=== PATIENT | female | born 1970 | race Caucasian/White ===

== ENCOUNTER 2021-10-26 09:41 | Day surgery (SDC) | payer BC ==
[~2021-10-26] VITALS: Ht 162.6 cm; Wt 78.9 kg
[~2021-10-26 09:41] MED LIST: BALANCED SALT IRRIG SOLN COMB1 500ML OP NR; CYCLOPENTOLATE HCL 1% OPHTH DROPS 2ML RIGHTEYE ONE; PHENYLEPHRINE HCL 10% OPHTH DROPS 5ML RIGHTEYE ONE; TROPICAMIDE 1% OPHTH DROPS 15ML RIGHTEYE ONE
[2021-10-26 10:09] LABS: UCG SCREEN NEGATIVE
[2021-10-26 10:54] LABS: BASOPHILS % 0.7 % (0.0-2.0); EOSINOPHILS % 0.7 % (0.0-5.0); HEMATOCRIT. 41.3 % (36.0-48.0); HEMOGLOBIN. 14.1 g/dL (12.0-16.0); LYMPHOCYTES % 15.6 % (20.0-50.0); MEAN CORPUSCULAR HEMOGLOBIN 29.4 pg (28.0-32.0); MEAN CORPUSCULAR VOLUME 86.4 fL (81.0-99.0); MEAN PLATELET VOLUME 7.5 fl (7.4-10.4); MONOCYTES % 3.1 % (2.0-8.0); NEUTROPHILS % 79.9 % (40.0-76.0); PLATELET 216 x1000/uL (130-400); RED BLOOD CELL COUNT 4.78 mill/uL (4.2-5.4); RED CELL DISTRIBUTION WIDTH 13.8 % (11.6-14.6)
[2021-10-26 10:59] LABS: CHLORIDE 103 mEq/L (98-107)
[2021-10-26] MEDS ORDERED: HYALURONATE SODIUM 10 MG/ML 0.55ML SYRINGE IO ONE (11:12)
[2021-10-26] MEDS ORDERED: FENTANYL CITRATE/PF 50MCG/ML 2ML VIAL ONE (11:18)
[2021-10-26] MEDS ORDERED: MIDAZOLAM HCL 2 MG/2 ML VIAL ONE ×3 (11:18→11:52)
[2021-10-26] MEDS ORDERED: TRYPAN BLUE 0.5 ML DISP.SYRIN IO ONE (11:50)
[2021-10-26] MEDS ORDERED: PROPOFOL 200MG/20ML VIAL IV ONE (11:58)
[2021-10-26] MEDS ORDERED: IBUP1TAB11 PO (12:27)
[2021-10-26] MEDS ORDERED: METO-385 PO (12:27)
[2021-10-26] MEDS ORDERED: LOSA1TAB34 PO (12:27)
[2021-10-26] MEDS ORDERED: TROPICAMIDE 1% OPHTH DROPS 15ML ONE (13:28)
[2021-10-26] MEDS ORDERED: ACETYLCHOLINE CHLORIDE INTRAOCULAR SOLUTION 1:100 ELECTROLYTE DILUENT IO ONE (13:28)
[2021-10-26] MEDS ORDERED: LIDOCAINE HCL/PF 2% 20 MG/ML 10ML VIAL ONE (13:28)
[2021-10-26] MEDS ORDERED: CYCLOPENTOLATE HCL 1% OPHTH DROPS 2ML ONE (13:28)
[2021-10-26] MEDS ORDERED: NEO/POLYMYX B SULF/DEXAMETH OPHTH OINT 3.5GM ONE (13:28)
[2021-10-26] MEDS ORDERED: CIPROFLOXACIN 0.3% OPHTH SOLN 2.5ML ONE (13:28)
[2021-10-26] MEDS ORDERED: PHENYLEPHRINE HCL 10% OPHTH DROPS 5ML ONE (13:28)
[2021-10-26] MEDS ORDERED: PREDNISOLONE ACETATE 1% OPHTH DROPS 5ML ONE (13:28)
[2021-10-26] MEDS ORDERED: TETRACAINE 0.5% OPHTH DROPS 4ML ONE (13:28)
[2021-10-26] MEDS ORDERED: BALANCED SALT IRRIG SOLN 15ML ONE (13:28)
== END 2021-10-26 14:00 | disposition home or self-care (01) ==
LOC: OR 09:41
PROVIDERS: ATTEND Ophthalmology
DX: H25.89 Other age-related cataract (principal); I10 Essential (primary) hypertension; N39.0 Urinary tract infection, site not specified; F11.20 Opioid dependence, uncomplicated; F43.0 Acute stress reaction; F17.210 Nicotine dependence, cigarettes, uncomplicated; Z79.899 Other long term (current) drug therapy; Z98.890 Other specified postprocedural states; Z82.49 Family history of ischemic heart disease and other diseases of the circulatory system; Z20.822 Contact with and (suspected) exposure to COVID-19
CPT/HCPCS: 36415; 66984; 80048; 81025; 85025; 87426; J2250; J2704; J3490; Q9957; V2632; J3010

== ENCOUNTER → 2021-11-09 | Day surgery (SDC) | payer BC ==
[~2021-11-09] VITALS: Ht 152.4 cm; Wt 81.6 kg
[~2021-11-09] MED LIST changes: +ACETAMINOPHEN 325MG TABLET PO NR; +ACETYLCHOLINE CHLORIDE INTRAOCULAR SOLUTION 1:100 ELECTROLYTE DILUENT IO ONE; +BALANCED SALT IRRIG SOLN 15ML ONE; -BALANCED SALT IRRIG SOLN COMB1 500ML OP NR; +BALANCED SALT IRRIG SOLN COMB1 500ML OP ONE; +CIPROFLOXACIN 0.3% OPHTH SOLN 2.5ML ONE; -CYCLOPENTOLATE HCL 1% OPHTH DROPS 2ML RIGHTEYE ONE; +CYCLOPENTOLATE HCL 1% OPHTH DROPS 2ML RIGHTEYE SCH; +HYALURONATE SODIUM 10 MG/ML 0.55ML SYRINGE IO ONE; +IBUP1TAB11 PO; +KETOROLAC 30MG/ML VIAL ONE; +LACTATED RINGERS 1,000 ML IV SCH; +LIDOCAINE HCL 1% 10 MG/ML 10ML VIAL ONE; +LIDOCAINE HCL/PF 2% 20 MG/ML 10ML VIAL ONE; +LOSA1TAB34 PO; +METO-385 PO; -PHENYLEPHRINE HCL 10% OPHTH DROPS 5ML RIGHTEYE ONE; +PHENYLEPHRINE HCL 10% OPHTH DROPS 5ML RIGHTEYE SCH; +PREDNISOLONE ACETATE 1% OPHTH DROPS 5ML ONE; +PROPOFOL 10MG/ML 100ML 100 ML IV ONE; +TETRACAINE 0.5% OPHTH DROPS 4ML ONE; -TROPICAMIDE 1% OPHTH DROPS 15ML RIGHTEYE ONE; +TROPICAMIDE 1% OPHTH DROPS 15ML RIGHTEYE SCH; +TRYPAN BLUE 0.5 ML DISP.SYRIN IO ONE
[2021-11-09 07:17] LABS: UCG SCREEN NEGATIVE
== END | disposition home or self-care (01) ==
LOC: OR 06:06
PROVIDERS: ATTEND Ophthalmology
DX: H52.31 Anisometropia (principal); Z79.899 Other long term (current) drug therapy; Z98.890 Other specified postprocedural states; Z20.822 Contact with and (suspected) exposure to COVID-19
CPT/HCPCS: 66986; 81025; 87426; J1885; J2704; J3490; V2632; Q9957

== ENCOUNTER 2022-05-12 03:45 | Inpatient (IN) | payer BC ==
[~2022-05-12] VITALS: Ht 152.4 cm; Wt 74.8 kg
[~2022-05-12 03:45] MED LIST changes: -ACETAMINOPHEN 325MG TABLET PO NR; -ACETYLCHOLINE CHLORIDE INTRAOCULAR SOLUTION 1:100 ELECTROLYTE DILUENT IO ONE; -BALANCED SALT IRRIG SOLN 15ML ONE; -BALANCED SALT IRRIG SOLN COMB1 500ML OP ONE; -CIPROFLOXACIN 0.3% OPHTH SOLN 2.5ML ONE; -CYCLOPENTOLATE HCL 1% OPHTH DROPS 2ML RIGHTEYE SCH; -HYALURONATE SODIUM 10 MG/ML 0.55ML SYRINGE IO ONE; -KETOROLAC 30MG/ML VIAL ONE; -LACTATED RINGERS 1,000 ML IV SCH; -LIDOCAINE HCL 1% 10 MG/ML 10ML VIAL ONE; -LIDOCAINE HCL/PF 2% 20 MG/ML 10ML VIAL ONE; -PHENYLEPHRINE HCL 10% OPHTH DROPS 5ML RIGHTEYE SCH; -PREDNISOLONE ACETATE 1% OPHTH DROPS 5ML ONE; -PROPOFOL 10MG/ML 100ML 100 ML IV ONE; -TETRACAINE 0.5% OPHTH DROPS 4ML ONE; -TROPICAMIDE 1% OPHTH DROPS 15ML RIGHTEYE SCH; -TRYPAN BLUE 0.5 ML DISP.SYRIN IO ONE
[2022-05-12] MEDS ORDERED: ONDANSETRON HCL 4MG/2ML INJ IV STA (04:04)
[2022-05-12] MEDS ORDERED: SODIUM CHLORIDE 0.9% 1,000 ML IV ONE (04:15)
[2022-05-12 04:28] LABS: BASOPHILS % 0.5 % (0.0-2.0); EOSINOPHILS % 0.6 % (0.0-5.0); HEMATOCRIT. 39.7 % (36.0-48.0); HEMOGLOBIN. 13.6 g/dL (12.0-16.0); LYMPHOCYTES % 11.4 % (20.0-50.0); MEAN CORPUSCULAR HEMOGLOBIN 29.7 pg (28.0-32.0); MEAN CORPUSCULAR VOLUME 86.4 fL (81.0-99.0); MEAN PLATELET VOLUME 7.4 fl (7.4-10.4); MONOCYTES % 3.9 % (2.0-8.0); NEUTROPHILS % 83.6 % (40.0-76.0); PLATELET 195 x1000/uL (130-400); RED BLOOD CELL COUNT 4.59 mill/uL (4.2-5.4); RED CELL DISTRIBUTION WIDTH 13.7 % (11.6-14.6)
[2022-05-12 04:35] LABS: CHLORIDE 102 mEq/L (98-107)
[2022-05-12] MEDS ORDERED: IBUPROFEN 600MG TABLET PO SCH (05:30)
[2022-05-12] MEDS ORDERED: IOHEXOL-300 100 ML BOTTLE ONE (06:23)
[2022-05-12] MEDS ORDERED: PIPERACILLIN/TAZ 3.375G PREMIX 50 ML IV ONE (07:45)
[2022-05-12] MEDS ORDERED: ONDANSETRON HCL 4MG/2ML INJ IV PRN ×2 (09:45→11:45)
[2022-05-12] MEDS ORDERED: MAGNESIUM/ALUMINUM HYDROXIDE/SIMETHICONE 30ML UDC PO PRN (09:45)
[2022-05-12] MEDS ORDERED: HYDROCODONE/ACETAMINOPHEN 5/325MG TABLET PO PRN (09:45)
[2022-05-12] MEDS ORDERED: ACETAMINOPHEN 325MG TABLET PO PRN (09:45)
[2022-05-12] MEDS ORDERED: GUAIFENESIN 200MG/10ML SUGAR FREE UDC PO PRN (09:45)
[2022-05-12] MEDS ORDERED: NALOXONE HCL 0.4MG/ML VIAL IV PRN (10:00)
[2022-05-12] MEDS ORDERED: BUPIVACAINE HCL 0.5% (5MG/ML) 50ML ONE (10:35)
[2022-05-12] MEDS ORDERED: SKIN ADHESIVE 0.7 GM EA TOP ONE (10:36)
[2022-05-12] MEDS ORDERED: PROPOFOL 200MG/20ML VIAL IV ONE (11:03)
[2022-05-12] MEDS ORDERED: FENTANYL CITRATE/PF 50MCG/ML 2ML VIAL ONE (11:03)
[2022-05-12] MEDS ORDERED: MIDAZOLAM HCL 2 MG/2 ML VIAL ONE (11:04)
[2022-05-12] MEDS ORDERED: BUPIVACAINE HCL/PF 0.5% (5MG/ML) 30ML ONE (11:04)
[2022-05-12] MEDS ORDERED: NEOSTIGMINE METHYLSULFATE 1MG/ML 10 ML VIAL ONE (11:33)
[2022-05-12] MEDS ORDERED: ROCURONIUM BROMIDE 10MG/ML VIAL 5ML IV ONE (11:33)
[2022-05-12] MEDS ORDERED: GLYCOPYRROLATE 0.2 MG/ML 2ML VIAL ONE ×2 (11:36)
[2022-05-12] MEDS ORDERED: MEPERIDINE HCL/PF 25MG/ML CPJ IV PRN (11:45)
[2022-05-12] MEDS ORDERED: HYDROMORPHONE HCL/PF 2MG/ML CPJ IV PRN (11:45)
[2022-05-12] MEDS ORDERED: LABETALOL 5MG/ML SYR 20 MG/4 ML SYRINGE IV PRN (11:45)
[2022-05-12] MEDS: CLONIDINE 0.1MG TABLET PO PRN ×2 (13:25→20:58)
[2022-05-12 15:58] VITALS: BP 175/94
[2022-05-12 16:00] VITALS: BP 175/94
[2022-05-12 20:00] VITALS: BP 165/102
[2022-05-12] MEDS ORDERED: IBUPROFEN 800MG TABLET PO PRN (20:45)
[2022-05-12] MEDS: IBUPROFEN 400MG TABLET PO PRN (20:57)
[2022-05-12] MEDS: ACETAMINOPHEN 325MG TABLET PO PRN (20:57)
[2022-05-13] VITALS: BP 179/87
[2022-05-13] MEDS: ACETAMINOPHEN 325MG TABLET PO PRN ×3 (02:59→20:03)
[2022-05-13] MEDS: IBUPROFEN 400MG TABLET PO PRN ×3 (02:59→20:03)
[2022-05-13] MEDS: CLONIDINE 0.1MG TABLET PO PRN (03:00)
[2022-05-13 04:00] VITALS: BP 168/88
[2022-05-13 08:00] VITALS: BP 169/92
[2022-05-13] MEDS ORDERED: DEXT 5%/0.45% NACL 1000ML 1,000 ML IV SCH (08:00)
[2022-05-13] MEDS ORDERED: DEXT 5%/0.9% NACL 1,000 ML IV SCH (08:00)
[2022-05-13 12:00] VITALS: BP 108/60
[2022-05-13] MEDS: PIPERACILLIN/TAZOBACTAM 3.375 G in DEXTROSE 5% WATER 50 ML IV SCH ×2 (14:53→22:03)
[2022-05-13 16:00] VITALS: BP 116/62
[2022-05-13 16:35] LABS: BASOPHILS % 0.2 % (0.0-2.0); EOSINOPHILS % 0.2 % (0.0-5.0); HEMOGLOBIN. 11.4 g/dL (12.0-16.0); LYMPHOCYTES % 11.8 % (20.0-50.0); MEAN CORPUSCULAR HEMOGLOBIN 29.4 pg (28.0-32.0); MEAN CORPUSCULAR VOLUME 87.8 fL (81.0-99.0); MEAN PLATELET VOLUME 7.7 fl (7.4-10.4); MONOCYTES % 5.8 % (2.0-8.0); PLATELET 174 x1000/uL (130-400); RED BLOOD CELL COUNT 3.87 mill/uL (4.2-5.4)
[2022-05-13 16:51] LABS: CHLORIDE 103 mEq/L (98-107)
[2022-05-13 20:00] VITALS: BP 140/74
[2022-05-13] MEDS: DEXT 5%/0.45% NACL KCL 20MEQ/L 1,000 ML IV SCH ×2 (20:04→22:03)
[2022-05-14] VITALS: BP 117/70
[2022-05-14] MEDS: ACETAMINOPHEN 325MG TABLET PO PRN ×2 (01:41→11:57)
[2022-05-14] MEDS: IBUPROFEN 400MG TABLET PO PRN ×2 (01:42→12:27)
[2022-05-14 04:00] VITALS: BP 124/78
[2022-05-14] MEDS: DEXT 5%/0.45% NACL KCL 20MEQ/L 1,000 ML IV SCH ×2 (05:15→13:07)
[2022-05-14] MEDS: PIPERACILLIN/TAZOBACTAM 3.375 G in DEXTROSE 5% WATER 50 ML IV SCH ×2 (05:15→13:19)
[2022-05-14 08:00] VITALS: BP 119/67
[2022-05-14 08:08] LABS: BASOPHILS % 0.2 % (0.0-2.0); EOSINOPHILS % 1.5 % (0.0-5.0); HEMATOCRIT. 29.6 % (36.0-48.0); HEMOGLOBIN. 10.4 g/dL (12.0-16.0); MEAN CORPUSCULAR HEMOGLOBIN 30.3 pg (28.0-32.0); MEAN CORPUSCULAR VOLUME 86.4 fL (81.0-99.0); MEAN PLATELET VOLUME 7.8 fl (7.4-10.4); MONOCYTES % 5.9 % (2.0-8.0); NEUTROPHILS % 81.4 % (40.0-76.0); PLATELET 159 x1000/uL (130-400); RED BLOOD CELL COUNT 3.43 mill/uL (4.2-5.4); RED CELL DISTRIBUTION WIDTH 14.1 % (11.6-14.6)
[2022-05-14 08:32] LABS: PHOSPHORUS 2.7 mg/dL (2.5-4.9)
[2022-05-14 12:00] VITALS: BP 137/81
[2022-05-14 15:45] VITALS: BP 116/66
[2022-05-14 16:00] VITALS: BP 116/66
== END 2022-05-14 16:53 | disposition home or self-care (01) | DRG 340 ==
LOC: ER 03:45 → 6EST 09:13 → EDBEDREQTM 09:15 → EDBEDREQ 09:15 → ENRESERV 09:23 → SUPCPDRO 09:28
PROVIDERS: ADMIT Internal Medicine; ATTEND Internal Medicine
PROC: 0DTJ4ZZ Resection of Appendix, Percutaneous Endoscopic Approach (ICD-10-PCS; principal; 2022-05-12)
DX: K35.32 Acute appendicitis with perforation, localized peritonitis, and gangrene, without abscess (principal); I10 Essential (primary) hypertension; F17.200 Nicotine dependence, unspecified, uncomplicated; K59.00 Constipation, unspecified; Z20.822 Contact with and (suspected) exposure to COVID-19; Z79.1 Long term (current) use of non-steroidal anti-inflammatories (NSAID); Z79.899 Other long term (current) drug therapy; Z98.891 History of uterine scar from previous surgery
CPT/HCPCS: 36415; 74177; 80048; 80053; 83735; 84100; 85025; 87426; 88304; 93005; 99291; C9803; J1170; J2250; J2405; J2543; J2704; J2710; J3010; J3490; J7030; J7042; J7060; Q9967

== ENCOUNTER → 2022-09-26 | Outpatient (CLI) | payer BC | END | disposition home or self-care (01) | LOC: US 08:07 | DX: R10.9 Unspecified abdominal pain (principal); R63.4 Abnormal weight loss | CPT/HCPCS: 71046; 76700 ==

== ENCOUNTER 2025-05-11 00:35 | Inpatient (IN) | payer BC ==
[~2025-05-11] VITALS: Ht 152.4 cm; Wt 87.3 kg
[2025-05-11 00:53] VITALS: O2SAT 97
[2025-05-11 01:52] LABS: BASOPHILS % 0.9 % (0.0-2.0); CHLORIDE 106 mEq/L (98-107); EOSINOPHILS % 2.5 % (0.0-5.0); HEMATOCRIT. 37.1 % (36.0-48.0); HEMOGLOBIN. 12.7 g/dL (12.0-16.0); LYMPHOCYTES % 27.9 % (20.0-50.0); MEAN CORPUSCULAR HEMOGLOBIN 29.1 pg (28.0-32.0); MEAN CORPUSCULAR HGB CONC 34.1 g/dL (31.0-37.0); MEAN CORPUSCULAR VOLUME 85.2 fL (81.0-99.0); MEAN PLATELET VOLUME 7.3 fl (7.4-10.4); MONOCYTES % 4.8 % (2.0-8.0); NEUTROPHILS % 63.9 % (40.0-76.0); PLATELET 212 x1000/uL (130-400); POTASSIUM 4.1 mEq/L (3.5-5.1); RED BLOOD CELL COUNT 4.35 mill/uL (4.2-5.4); SODIUM 140 mEq/L (136-145); WHITE BLOOD COUNT 6.4 x1000/uL (4.5-11.0)
[2025-05-11 01:53] LABS: CALCIUM 9.4 mg/dL (8.7-10.4); CARBON DIOXIDE 26 mEq/L (21-32)
[2025-05-11] MEDS: ASPIRIN 81MG TABLET PO ONE (01:56)
[2025-05-11 01:58] LABS: CREATININE 1.3 mg/dL (0.6-1.0); GLUCOSE 115 mg/dL (70-105); UREA NITROGEN BLOOD 24 mg/dL (9-23)
[2025-05-11 01:59] LABS: TROPONIN I HIGH SENSITIVITY 4 ng/L (3.0-34)
[2025-05-11] MEDS ORDERED: IPRATROPIUM/ALBUTEROL 0.5-3(2.5)MG/3ML NEB NEB PRN (05:15)
[2025-05-11] MEDS ORDERED: ONDANSETRON HCL 4MG/2ML INJ IV PRN (05:15)
[2025-05-11] MEDS ORDERED: CLONIDINE 0.1MG TABLET PO PRN (05:15)
[2025-05-11] MEDS ORDERED: ACETAMINOPHEN 325MG TABLET PO PRN ×2 (05:15)
[2025-05-11] MEDS ORDERED: MAGNESIUM/ALUMINUM HYDROXIDE/SIMETHICONE 30ML UDC PO PRN (05:15)
[2025-05-11] MEDS ORDERED: GUAIFENESIN 200MG/10ML SUGAR FREE UDC PO PRN (05:15)
[2025-05-11] MEDS: ENOXAPARIN 40MG/0.4ML SYR SUBCUT SCH (09:00)
[2025-05-11 10:00] VITALS: BP 155/86; PULSE 87; RESP 16; RESP 18; TEMP 36.7; TEMP 36.8; O2SAT 97
[2025-05-11] MEDS: METOPROLOL SUCCINATE 50MG ER TABLET PO SCH (10:30)
[2025-05-11 12:00] VITALS: BP 140/88; PULSE 77; RESP 17; TEMP 36.8; O2SAT 98
[2025-05-11] MEDS: PANTOPRAZOLE SODIUM 40 MG/VIAL IV SCH (12:13)
[2025-05-11] MEDS: SODIUM CHLORIDE 0.9% 1,000 ML IV SCH (15:20)
[2025-05-11 16:00] VITALS: BP 142/75; PULSE 73; RESP 18; TEMP 36.7; O2SAT 97
[2025-05-11] MEDS ORDERED: AMLO5TAB88 PO (16:19)
[2025-05-11 19:23] LABS: CREATINE KINASE MB FRACTION 4.1 ng/mL (0.5-3.6)
[2025-05-11 19:28] LABS: T4 FREE 1.11 ng/dL (0.89-1.76)
[2025-05-11 19:29] LABS: THYROID STIMULATING HORMONE 0.63 uIU/mL (0.55-4.78)
[2025-05-11 20:00] VITALS: BP 126/80; PULSE 64; RESP 18; TEMP 36.5; O2SAT 95
[2025-05-11 22:22] LABS: CREATINE KINASE MB FRACTION 4.7 ng/mL (0.5-3.6)
[2025-05-12] VITALS: BP 168/94; PULSE 67; RESP 18; TEMP 35.9; O2SAT 93
[2025-05-12 08:00] VITALS: BP 125/62; PULSE 83; RESP 18; TEMP 36.3; O2SAT 99
[2025-05-12] MEDS: ASPIRIN 81MG TABLET PO SCH (09:32)
[2025-05-12 09:33] VITALS: PULSE 83
[2025-05-12] MEDS ORDERED: REGADENOSON 0.4 MG/5 ML IV SCH (10:00)
== END 2025-05-12 10:55 | disposition left against medical advice (07) | DRG 311 ==
LOC: ER 00:35 → EDBEDREQ 03:10 → EDBEDREQTM 03:10 → ENRESERV 07:16 → 6WST 10:30
PROVIDERS: ADMIT Internal Medicine; ATTEND Internal Medicine
DX: I20.9 Angina pectoris, unspecified (principal); N17.9 Acute kidney failure, unspecified; I12.9 Hypertensive chronic kidney disease with stage 1 through stage 4 chronic kidney disease, or unspecified chronic kidney disease; N18.9 Chronic kidney disease, unspecified; F17.210 Nicotine dependence, cigarettes, uncomplicated; Z53.29 Procedure and treatment not carried out because of patient's decision for other reasons; Z79.82 Long term (current) use of aspirin
CPT/HCPCS: 36415; 71045; 76770; 80048; 80061; 82550; 82553; 83036; 83880; 84439; 84443; 84484; 85025; 93005; 93970; 99285; J1650; J2470; J2785; J7030

== ENCOUNTER 2025-10-09 10:44 | Emergency (ER) | payer BC ==
[~2025-10-09] VITALS: Ht 152.4 cm; Wt 76.0 kg
[~2025-10-09 10:44] MED LIST changes: +AMLO5TAB88 PO
[2025-10-09 10:56] VITALS: O2SAT 100
[2025-10-09 11:57] VITALS: BP 150/88; PULSE 82; RESP 15; TEMP 36.7; O2SAT 100
== END 2025-10-09 11:58 | disposition home or self-care (01) ==
LOC: ER 11:09
DX: T18.108A Unspecified foreign body in esophagus causing other injury, initial encounter (principal); F41.9 Anxiety disorder, unspecified; I10 Essential (primary) hypertension; Z79.899 Other long term (current) drug therapy; W44.9XXA Unspecified foreign body entering into or through a natural orifice, initial encounter; Y93.89 Activity, other specified; Y92.89 Other specified places as the place of occurrence of the external cause; Y99.8 Other external cause status
CPT/HCPCS: 99282

== ENCOUNTER → 2025-10-21 | Day surgery (SDC) | payer BC ==
[~2025-10-21] VITALS: Ht 152.4 cm; Wt 80.7 kg
[~2025-10-21] MED LIST changes: +ACETAMINOPHEN 1,000MG/100ML PREMIX IV PRN; +BALANCED SALT IRRIG SOLN COMB1 500ML OP SCH; +CYCLOPENTOLATE HCL 1% OPHTH DROPS 2ML LEFTEYE ONE; +FAMOTIDINE 20MG/2ML VIAL IV PRN; +FENTANYL CITRATE/PF 50MCG/ML 2ML VIAL ONE; +HYALURONATE SODIUM 10MG/ML 0.55ML SYRINGE IO ONE; +HYDRALAZINE 20MG/ML VIAL IV PRN; +HYDROMORPHONE HCL/PF 1MG/ML INJ IV PRN; -IBUP1TAB11 PO; +LABETALOL 5MG/ML 4ML INJ IV PRN; +MEPERIDINE HCL/PF 25MG/ML CPJ IV PRN; +MIDAZOLAM HCL 2 MG/2 ML VIAL ONE; +ONDANSETRON HCL 4MG/2ML INJ IV PRN; +PHENYLEPHRINE HCL 10% OPHTH DROPS 5ML EACHEYE ONE; +PROPOFOL 200MG/20ML VIAL IV ONE; +TROPICAMIDE 1% OPHTH DROPS 15ML LEFTEYE ONE; +TRYPAN BLUE 0.5 ML DISP.SYRIN IO ONE
[2025-10-21] MEDS: LACTATED RINGERS 1,000 ML IV SCH (07:07)
== END | disposition home or self-care (01) ==
LOC: OR 06:14
PROVIDERS: ATTEND Ophthalmology
DX: H25.22 Age-related cataract, morgagnian type, left eye (principal); I12.9 Hypertensive chronic kidney disease with stage 1 through stage 4 chronic kidney disease, or unspecified chronic kidney disease; N18.31 Chronic kidney disease, stage 3a; Z79.899 Other long term (current) drug therapy; Z98.890 Other specified postprocedural states; Z82.49 Family history of ischemic heart disease and other diseases of the circulatory system
CPT/HCPCS: 66982; J3010; J2250; J2704; J3490; Q9957; A4217; V2632